=== PATIENT | female | born 1960 | race Caucasian/White ===

== ENCOUNTER → 2020-08-01 09:41 | Outpatient (BNVA) | payer BC, SELFPAY | PROVIDERS: PCP Internal Medicine; Referring Provider Internal Medicine; Visit Provider Internal Medicine | DX: Z76.89 Persons encountering health services in other specified circumstances (principal) ==

== ENCOUNTER → 2020-08-29 10:04 | Outpatient (BNVA) | payer BC, SELFPAY | PROVIDERS: PCP Internal Medicine; Referring Provider Internal Medicine; Visit Provider Internal Medicine | DX: Z76.89 Persons encountering health services in other specified circumstances (principal) ==

== ENCOUNTER → 2021-01-07 14:58 | Outpatient (BNVA) | payer BC, SELFPAY | PROVIDERS: PCP Internal Medicine; Visit Provider Internal Medicine ==

== ENCOUNTER → 2021-06-30 09:16 | Outpatient (BNVA) | payer BC, SELFPAY | PROVIDERS: PCP Internal Medicine; Referring Provider Internal Medicine; Visit Provider Internal Medicine | DX: I10 Essential (primary) hypertension (principal); G47.33 Obstructive sleep apnea (adult) (pediatric); E11.9 Type 2 diabetes mellitus without complications | CPT/HCPCS: 93005 ==

== ENCOUNTER → 2022-07-02 09:51 | Outpatient (BNVA) | payer BC, SELFPAY | PROVIDERS: PCP Internal Medicine; Referring Provider Internal Medicine; Visit Provider Internal Medicine | DX: I10 Essential (primary) hypertension (principal); E11.9 Type 2 diabetes mellitus without complications; G47.33 Obstructive sleep apnea (adult) (pediatric); E66.01 Morbid (severe) obesity due to excess calories; Z68.35 Body mass index [BMI] 35.0-35.9, adult | CPT/HCPCS: 93005 ==

== ENCOUNTER 2023-07-05 10:07 | Outpatient (REF) | payer BC, SELFPAY ==
[2023-07-05 11:51] LABS: Anion Gap 11 (12-20); Blood Urea Nitrogen 20 mg/dL (9-16); Carbon Dioxide 23 mmol/L (22-29); Chloride 109 mmol/L (96-108); Estimated Glomerular Filt Rate 57; Glucose Random 123 mg/dL (60-115); Potassium 4.5 mmol/L (3.3-5.1); Sodium 138 mmol/L (135-145)
== END 2023-07-05 10:08 | disposition home or self-care (01) ==
LOC: HO.LAB 10:07
PROVIDERS: PCP Internal Medicine; Visit Provider Internal Medicine
DX: I10 Essential (primary) hypertension (principal); E11.9 Type 2 diabetes mellitus without complications; G47.33 Obstructive sleep apnea (adult) (pediatric); E66.01 Morbid (severe) obesity due to excess calories; Z79.899 Other long term (current) drug therapy
CPT/HCPCS: 36415; 80048; 93005

== ENCOUNTER 2023-07-05 10:07 | Outpatient (AMB) | payer BC, SELFPAY ==
--- NOTE | 2023-07-05 10:18 | A.OFFVIS_ITS ---
Intake Vital Signs 07/05/23 10:19 Height 5 ft 5 in Weight 210 lb 5.136 oz BMI 35.0 BP 126/84 Blood Pressure Location Rt brachial Position Sitting Pulse 64 Intake Visit Reasons: 1 yr f/up Intake Note: 1 year follow up w/ EKG Senior Network Engineer Required: No Accompanied by: Self / Same As Patient Allergies diltiazem Allergy (Unknown, Verified 07/05/23 10:21) RASH, MYALGIAS Sulfa (Sulfonamide Antibiotics) Allergy (Unknown, Verified 07/05/23 10:21) RASH Medication List - Last Reconciled 07/05/23 by Mono Yeung MD benazepril 40 mg PO DAILY biotin 2,000 mcg PO DAILY carvedilol 12.5 mg PO BID 90 days cholecalciferol (vitamin D3) 50 mcg PO DAILY levothyroxine 125 mcg PO DAILY liothyronine 5 mcg PO QAM spironolactone 25 mg PO DAILY HPI HPI Comments History of Present Illness Details Verona returns for follow-up regarding hypertension. She has had hypertension for more than 10 years. She has had a lot of side effects with different medications. When amlodipine was tried, that gave her leg swelling and discomfort. Verapamil was also giving side effects. Then diltiazem gave some type of allergic reaction. Toprol led to fatigue. Then was taking combination of atenolol and benazepril. We added spironolactone/ HCTZ but there was an elevation of BUN and hence HCTZ part was taken off. After several changes, current regimen includes carvedilol, benazepril and spironolactone. Home diary reviewed and essentially most blood pressures are in the normal range. Otherwise, she feels good. No cardiac symptoms at all. Weight is just about the same as before. [facility] Medical History (Updated 07/02/22 @ 10:28 by Mono Yeung MD) Morbid obesity Obstructive sleep apnea Diet-controlled diabetes mellitus Essential hypertension Surgical History History of Mohs micrographic surgery for skin cancer History of cataract surgery History of cholecystectomy Family History Father No problems noted. Mother Breast CA Esophageal cancer Lung cancer Social History Patient Tobacco Use Status: Never used Tobacco Review of Systems Const Denies weakness ENT Denies dizziness Card Denies chest pain, Denies chest pain with activity, Denies syncope, Denies rapid heart rate, Denies pedal edema, Denies edema, Denies leg edema, Denies lightheadedness, Denies palpitations, Denies dyspnea, Denies dyspnea on exertion and Denies orthopnea Resp Denies cough, Denies dyspnea and Denies dyspnea on exertion GI Denies hematochezia and Denies change in stool character Reports no additional complaints and Reports as per HPI Musc Denies abnormal gait, Denies muscle weakness, Denies numbness, Denies radiating pain into limb and Denies tingling Skin/Breast Reports system reviewed and no additional complaints, except as documented and Reports as per HPI Neuro Denies abnormal gait, Denies dizziness, Denies syncope, Denies numbness, Denies tingling and Denies weakness Endo Denies palpitations Physical Exam Vital Signs: Last Vital Signs Pulse 64 07/05/23 10:19 BP 126/84 07/05/23 10:19 BMI result Body Mass Index 35.0 Const General: comfortable and no acute distress Orientation/consciousness: patient oriented x3 HEENT Other: Unremarkable Head: Yes normal to inspection Neck Neck: Yes normal visual inspection Chest Chest palpation & inspection: normal inspection of the chest Resp Auscultation: clear to auscultation bilaterally Cardio Palpation: normal PMI Heart sounds: S1 normal heart sound present, S2 normal heart sound present, no gallops, no murmurs and no rubs GI Palpation (GI): Soft to palpation Back/Spine/Pelvis Other: unremarkable Skin General skin exam: no rashes or lesions noted Neuro General: patient oriented x3 Extrem General: Yes normal to inspection Psych Mental Status: mental status grossly normal Office Procedures EKG Details: EKG with sinus rhythm at 64/Min; nonspecific ST-T changes but otherwise unremarkable[place] [id number], Complete Assessment & Plan Assessment & Plan (1) Essential hypertension: Code(s): I10 - Essential (primary) hypertension Plan: Stable blood pressure on home diary. Continue current regimen. Labs were done today and potassium 4.5. BUN 20. Creatinine 0.98. (2) Diet-controlled diabetes mellitus: Code(s): E11.9 - Type 2 diabetes mellitus without complications Plan: Per patient, on diet control only. Not listed to be on medications. Random sugar is 123. (3) Obstructive sleep apnea: Code(s): G47.33 - Obstructive sleep apnea (adult) (pediatric) Plan: Not interested in CPAP. (4) Morbid obesity: Code(s): E66.01 - Morbid (severe) obesity due to excess calories Plan: Weight has been just about the same as in the past. This has been discussed several times. Plan Total time spent including review of chart, test results, counseling, documentation, coordination of care-31 minutes. Orders: Orders Basic Metabolic Panel Today I10 - Essential (primary) hypertension Coding Level of Care Code Est Pt Level 4 (64208) Diagnoses Essential hypertension I10 Diet-controlled diabetes mellitus E11.9 Obstructive sleep apnea G47.33 Morbid obesity E66.01 CPT Codes EKG - CPT: 82280-[id number], Complete ([id number])
[2023-07-05 10:19] VITALS: BP 126/84; PULSE 64; BMI 35.0
== END 2023-07-05 10:35 | disposition home or self-care (01) ==
PROVIDERS: PCP Internal Medicine; Visit Provider Internal Medicine
DX: I10 Essential (primary) hypertension (principal); E11.9 Type 2 diabetes mellitus without complications; G47.33 Obstructive sleep apnea (adult) (pediatric); E66.01 Morbid (severe) obesity due to excess calories
CPT/HCPCS: 93010; 99214

== ENCOUNTER 2024-07-04 14:43 | Outpatient (AMB) | payer OTHER, SELFPAY ==
[2024-07-04 14:47] VITALS: BP 130/78; PULSE 65; BMI 35.8
--- NOTE | 2024-07-04 14:47 | MHC.OFFVIS ---
Vital Signs 07/04/24 14:47 Height 5 ft 5 in Weight 215 lb 2.738 oz BMI 35.8 BP 130/78 Blood Pressure Location Lt brachial Position Sitting Pulse 65 Intake Visit Reasons: 1 year followup w/ekg Quarrying Specialist Required: No Accompanied by: Self / Same As Patient Allergies diltiazem Allergy (Unknown, Verified 07/05/23 10:21) RASH, MYALGIAS Sulfa (Sulfonamide Antibiotics) Allergy (Unknown, Verified 07/05/23 10:21) RASH Medication List - Last Reconciled 07/04/24 by Mono Yeung MD benazepril 40 mg PO DAILY carvedilol 12.5 mg PO BID 90 days cholecalciferol (vitamin D3) 50 mcg PO DAILY levothyroxine 125 mcg PO DAILY spironolactone 25 mg PO DAILY HPI Comments Details: Verona returns for follow-up regarding hypertension. She has had hypertension for many years. Intolerance listed numerous medications at different times. With amlodipine, she had leg swelling/discomfort. Verapamil with some other side effects. Diltiazem cause some allergies. Toprol led to fatigue. Unspecified issues with atenolol. Then tried spironolactone/hydrochlorothiazide but then there was increase in BUN and then HCTZ was stopped. At the current time, current regimen is carvedilol, benazepril, spironolactone. In fact, she has been doing well on this for a while. Blood pressures are quite well controlled. Home diary shows essentially normal blood pressures. No specific cardiac symptoms. [facility]END[facility] TO [facility] Medical History (Updated 07/02/22 @ 10:28 by Mono Yeung MD) Morbid obesity Obstructive sleep apnea Diet-controlled diabetes mellitus Essential hypertension Surgical History History of Mohs micrographic surgery for skin cancer History of cataract surgery History of cholecystectomy Family History Father No problems noted. Mother Breast CA Esophageal cancer Lung cancer Social History Alcohol intake: never Patient Tobacco Use Status: Never used Tobacco Review of Systems Const Denies chills, Denies fatigue, Denies fever(s), Denies weight gain and Denies weight loss ENT Denies dizziness Card Denies chest pain, Denies leg edema, Denies lightheadedness, Denies palpitations, Denies dyspnea on exertion, Denies orthopnea and Denies other Resp Denies cough and Denies dyspnea on exertion GI Denies hematochezia and Denies change in stool character Musc Denies abnormal gait, Denies muscle weakness, Denies numbness, Denies radiating pain into limb and Denies tingling Neuro Denies abnormal gait, Denies dizziness, Denies numbness and Denies tingling Endo Denies fatigue and Denies palpitations Physical Exam Vital Signs: Last Vital Signs Pulse 65 07/04/24 14:47 BP 130/78 07/04/24 14:47 BMI result Body Mass Index 35.8 Const General: comfortable and no acute distress Orientation/consciousness: patient oriented x3 HEENT Other: Unremarkable Head: Yes normal to inspection Neck Neck: Yes normal visual inspection Chest Chest palpation & inspection: normal inspection of the chest Resp Auscultation: clear to auscultation bilaterally Cardio Palpation: normal PMI Heart sounds: S1 normal heart sound present, S2 normal heart sound present, no gallops, no murmurs and no rubs GI Palpation (GI): Soft to palpation Back/Spine/Pelvis Other: unremarkable Skin General skin exam: no rashes or lesions noted Neuro General: patient oriented x3 Extrem General: Yes normal to inspection Psych Mental Status: mental status grossly normal Office Procedures EKG Details: EKG with underlying sinus rhythm at 65/Min; no significant ST-T changes and otherwise unremarkable. [place]. [id number], Complete Assessment & Plan Assessment & Plan (1) Essential hypertension: Code(s): I10 - Essential (primary) hypertension Category: Medical Plan: Home diary shows BP in the normal range. No changes made and she can remain on the current regimen. Last available labs from [facility], potassium 4.5. BUN 23 and creatinine is 1. (2) Obstructive sleep apnea: Code(s): G47.33 - Obstructive sleep apnea (adult) (pediatric) Category: Medical Plan: Not interested in CPAP. Suspect some of the issues related to blood pressure management is from this. (3) Morbid obesity: Code(s): E66.01 - Morbid (severe) obesity due to excess calories Category: Medical Plan: Unfortunately, has not been able to lose much weight. It has been like this for a while. She is still motivated to lose weight however. Plan Total time spent including review of data, counseling, documentation, coordination of care-31 minutes. Coding Level of Care Code Est Pt Level 4 (17449) Diagnoses Essential hypertension I10 Obstructive sleep apnea G47.33 Morbid obesity E66.01 CPT Codes EKG - CPT: 15159-[id number], Complete ([id number])
== END 2024-07-04 15:05 | disposition home or self-care (01) ==
PROVIDERS: PCP Internal Medicine; Visit Provider Internal Medicine
DX: I10 Essential (primary) hypertension (principal); G47.33 Obstructive sleep apnea (adult) (pediatric); E66.01 Morbid (severe) obesity due to excess calories
CPT/HCPCS: 93010; 99214

== ENCOUNTER → 2024-07-04 14:43 | Outpatient (BNVA) | payer BC, SELFPAY | PROVIDERS: PCP Internal Medicine; Visit Provider Internal Medicine | DX: I10 Essential (primary) hypertension (principal); G47.33 Obstructive sleep apnea (adult) (pediatric); E66.01 Morbid (severe) obesity due to excess calories; Z68.35 Body mass index [BMI] 35.0-35.9, adult | CPT/HCPCS: 93005 ==

== ENCOUNTER 2025-07-03 13:30 | Outpatient (AMB) | payer OTHER, SELFPAY ==
[2025-07-03 13:42] VITALS: BP 124/78; PULSE 69; BMI 35.2
--- NOTE | 2025-07-03 13:42 | MHC.OFFVIS ---
Vital Signs 07/03/25 13:42 Height 5 ft 5 in Weight 211 lb 10.3 oz BMI 35.2 BP 124/78 Blood Pressure Location Rt brachial Position Sitting Pulse 69 Pulse Source Monitor Intake Visit Reasons: 1 yr f/up Allergies diltiazem Allergy (Unknown, Verified 07/05/23 10:21) RASH, MYALGIAS Sulfa (Sulfonamide Antibiotics) Allergy (Unknown, Verified 07/05/23 10:21) RASH Medication List - Last Reconciled 07/03/25 by Mono Yeung MD benazepril 40 mg PO DAILY carvedilol 12.5 mg PO BID 90 days cholecalciferol (vitamin D3) 50 mcg PO DAILY levothyroxine 125 mcg PO DAILY spironolactone 25 mg PO DAILY HPI Comments Details: Verona returns for follow-up regarding hypertension. She has had hypertension for many years. Intolerance listed numerous medications at different times. With amlodipine, she had leg swelling/discomfort. Verapamil with some other side effects. Diltiazem cause some allergies. Toprol led to fatigue. Unspecified issues with atenolol. Then tried spironolactone/hydrochlorothiazide but then there was increase in BUN and then HCTZ was stopped. For the last few years, she has been quite stable on a combination of carvedilol, benazepril and spironolactone. She has had no new issues. No concerns like angina or shortness of breath or in fact any cardiac symptoms at all. [facility] Medical History (Updated 07/02/22 @ 10:28 by Mono Yeung MD) Morbid obesity Obstructive sleep apnea Diet-controlled diabetes mellitus Essential hypertension Surgical History History of Mohs micrographic surgery for skin cancer History of cataract surgery History of cholecystectomy Family History Father No problems noted. Mother Breast CA Esophageal cancer Lung cancer Social History Alcohol intake: never Patient Tobacco Use Status: Never used Tobacco Review of Systems Const Denies weakness ENT Denies dizziness Card Denies chest pain, Denies chest pain with activity, Denies syncope, Denies rapid heart rate, Denies pedal edema, Denies edema, Denies leg edema, Denies lightheadedness, Denies palpitations, Denies dyspnea, Denies dyspnea on exertion and Denies orthopnea Resp Denies cough, Denies dyspnea and Denies dyspnea on exertion GI Denies hematochezia and Denies change in stool character Musc Denies abnormal gait, Denies muscle cramps, Denies muscle weakness, Denies numbness, Denies radiating pain into limb and Denies tingling Neuro Denies abnormal gait, Denies dizziness, Denies syncope, Denies numbness, Denies tingling and Denies weakness Endo Denies palpitations Physical Exam Vital Signs: Last Vital Signs Pulse 69 07/03/25 13:42 BP 124/78 07/03/25 13:42 BMI result Body Mass Index 35.2 Const General: comfortable and no acute distress Orientation/consciousness: patient oriented x3 HEENT Other: Unremarkable Head: Yes normal to inspection Neck Neck: Yes normal visual inspection Chest Chest palpation & inspection: normal inspection of the chest Resp Auscultation: clear to auscultation bilaterally Cardio Palpation: normal PMI Heart sounds: S1 normal heart sound present, S2 normal heart sound present, no gallops, no murmurs and no rubs GI Palpation (GI): Soft to palpation Back/Spine/Pelvis Other: unremarkable Skin General skin exam: no rashes or lesions noted Neuro General: patient oriented x3 Extrem General: Yes normal to inspection Psych Mental Status: mental status grossly normal Office Procedures EKG Details: EKG with underlying sinus rhythm at 69/Min; nonspecific ST-T changes; [place]. [id number], Complete Assessment & Plan Assessment & Plan (1) Essential hypertension: Code(s): I10 - Essential (primary) hypertension Category: Medical Plan: Currently on Coreg, benazepril, spironolactone. Last labs-Creatinine 0.96. Potassium 4.9 (2) Obstructive sleep apnea: Code(s): G47.33 - Obstructive sleep apnea (adult) (pediatric) Category: Medical Plan: We have discussed CPAP several times but not pursued. (3) Morbid obesity: Code(s): E66.01 - Morbid (severe) obesity due to excess calories Category: Medical Plan: Compared to the last weight, has lost about 4 lb or so. Overall, she has been in the 210-15 lb sewn for quite some time. She is very well aware of the fact that she needs to lose weight. Plan Total time spent including review of data, counseling, documentation, coordination of care-32 minutes. Coding Level of Care Code Est Pt Level 4 (59740) Complex EM visit Add On G2211 Diagnoses Essential hypertension I10 Obstructive sleep apnea G47.33 Morbid obesity E66.01 CPT Codes EKG - CPT: 03937-[id number], Complete ([id number])
--- OUTSIDE RECORDS SUMMARY | 2025-07-03 17:26 | XMS_ITS | Clinical Summary ---
Author Organization [facility] Address [address] [place] [phone] Phone Care Team Providers Care Manager Secondary Name Role Phone Millie Aguilar MD Primary Care Provider [phone] Allergies Active Allergy Reactions Criticality Noted Date Comments Diltiazem Hcl Rash Low 08/09/2018 Sulfa (Sulfonamide Antibiotics) Itching,Rash Low Medications benazepril (LOTENSIN) 40 MG tablet Take 40 mg by mouth daily. Active verapamil (CALAN-SR) 180 MG CR tablet Take 180 mg by mouth nightly. Active biotin 1,000 mcg ChewIndications: 2 tabs a day Take by mouth. Active cholecalciferol (VITAMIN D3) 2,000 unit capsule Take by mouth daily. Active docusate sodium (COLACE) 50 MG capsule Take by mouth 2 (two) times a day. Active ibuprofen (ADVIL,MOTRIN) 200 MG tabletIndication s:as needed Take 200 mg by mouth every 6 (six) hours as needed for pain (specific location in comments). Active sennosides (SENOKOT ORAL)Indications :a00mg ocasionally Take by mouth. Active tobramycin (TOBREX) 0.3 % ophthalmic solution Place 1 drop into each eye every 4 (four) hours. Active levothyroxine (SYNTHROID, LEVOTHROID) 100 MCG tablet Take 100 mcg by mouth every morning. 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 Not on elisa e 02/12/2023 Are you concerned about learning? Not on file 02/12/2023 No 02/12/2023 No 02/12/2023 Digital Access Answer Date Recorded No 03/13/2023 No 03/13/2023 No 03/13/2023 Reliable internet access at home? Not on file 03/13/2023 Device with a working camera? Not on file Comments Unknown Sex and Gender Information Value Date Recorded Sex Assigned at Not on file Legal Sex Female 9:51 AM EDT Gender Identity Not on file Sexual Orientation Not on file Last Filed Vital Signs Vital Sign Reading Time Taken Comments Blood Pressure 181/92 08/09/2018 8:24 AM EDT Pulse 79 08/09/2018 8:24 AM EDT Temperature - - Respiratory Rate - - Oxygen Saturation 97% 08/09/2018 8:24 AM EDT Inhaled Oxygen Concentration - - Weight 94.7 kg (208 lb 11.2 oz) 08/09/2018 8:24 AM EDT Height 165.1 cm (5' 5 ) 08/09/2018 8:24 AM EDT Body Mass Index 34.73 08/09/2018 8:24 AM EDT Plan of Treatment Health Maintenance Due Date Last Done Comments Adult Td,Tdap Booster 1959 BLOOD PRESSURE 1959 CREATININE LEVEL 1959 LIPID PANEL 1959 POTASSIUM LEVEL 1959 TSH LEVEL 1959 DEPRESSION SCREENING 1971 MAMMOGRAM 1999 COLOGUARD 2004 COLONOSCOPY 2004 COLORECTAL CANCER SCREENING 2004 FIT TEST 2004 FOBT 2004 SIGMOIDOSCOPY 2004 VIRTUAL COLONOSCOPY 2004 PNEUMOCOCCAL VACCINES (50+ years) (1 of 1 - PCV) 2009 ZOSTER VACCINES (1 of 2) 2009 OSTEOPOROSIS SCREENING INITI AL (ONE-TIME) 2024 INFLUENZA VACCINE (#1) 2025 COVID-19 VACCINE (3 - 2024-2 6 season) 2025 12/06/2020, 11/15/2020 RSV VACCINE (1 - 1-dose 75+ series) 2034 HEPATITIS C SCREENING Completed 08/09/2018 SMOKING STATUS SCREENING (On ce After 26 Yrs) Completed 08/09/2018 HEPATITIS A VACCINES Aged Out No long er eligible based on patient's age to complete this topic HIB VACCINES Aged Out No longer eligi ble based on patient's age to complete this topic MENINGOCOCCAL VACCINES (ACWY) Aged Out No longer eligible based on patient's age to complete this topic MENINGOCOCCAL VACCINES (B) Aged Out N o longer eligible based on patient's age to complete this topic Medical Devices Not on file Procedures Procedure Name Priority Date/Time Associated Diagnosis Comments HEPATITIS C ANTIBODY, QUALITATIVE Routine 08/09/2018 9:10 AM EDT Carrier of qajvs-7-upmsbersbrh deficiency from Last 3 Months or Most Recently Relevant to Health Maintenance Results * Hepatitis C antibody, qualitative (08/09/2018 9:10 AM EDT) HCV Nonreactive Nonreactive [facility] 08/09/2018 9:10 AM EDT 08/09/2018 9:28 AM EDT us Javier Polanco MD, MPH LAB BLOOD ORDERABLES Final Result Performing Organization Address City/State/[facility] Co de Phone Number [facility] [address] [place] [address] from Last 3 Months or Most Recently Relevant to Health Maintenance [facility] POS O POS HMO POS Member Subscriber Plan / Payer (Ef fective 2016-Present) Name:Verona Guevara Relation to Subscriber:Self Name:CornelioelizVerona Payer ID:[id number] (NAIC) Type:HMO Address: [address] HMO POS HMO POS HMO [place] [address] HMO POS [facility] HMO POS Care Teams Manager Secondary Relationship Specialty [place] [address] [place] [id number] PCP - General Internal Medicine 05/24/18 Additional Source Comments The information contained in this document represents components of the legal health record. It is not the complete legal health record.[facility]
--- OUTSIDE RECORDS SUMMARY | 2025-07-03 17:26 | XMS_ITS | Clinical Summary ---
Author Organization [facility] it Address [address] [place] [address] Care Team Providers Care International Representative Name Role Phone Millie Aguilar MD Primary Care Provider Social History Tobacco Use Types Packs/Day Years Used Date Smoking Tobacco: Never Assessed Comments Unknown Sex and Gender Information Value Date Recorded Sex Assigned at Not on file Legal Sex Female 4:07 AM EST Gender Identity Not on file Sexual Orientation Not on file Plan of Treatment Health Maintenance Due Date Last Done Comments Breast Cancer Screening 1959 DTaP,Tdap,and Td Vaccines (1 - Tdap) 1978 Pneumococcal Vaccine: 50+ Ye ars (1 of 1 - PCV) 2009 Zoster Vaccines (1 of 2) 2009 Colorectal Cancer Screening: Colonoscopy 09/20/2022 Hepatitis C Screening 09/20/2022 Osteoporosis Screening (Bone Density Screening) 09/20/2022 Social Influencers of Health Screening 09/20/2022 Falls Risk Assessment 2024 Depression Screening 10/18/2024 COVID-19 Vaccine (1 - 2023-2 5 season) 2025 Influenza Vaccine (#1) 2025 RSV Immunization Adult Patie nts (1 - 1-dose 75+ series) 2034 HIB Vaccines Aged Out No longer eligi ble based on patient's age to complete this topic HPV Vaccines Aged Out No longer eligi ble based on patient's age to complete this topic Hepatitis A Vaccines Aged Out No long er eligible based on patient's age to complete this topic Hepatitis B Vaccines Aged Out No long er eligible based on patient's age to complete this topic IPV Vaccines Aged Out No longer eligi ble based on patient's age to complete this topic MMR Vaccines Aged Out No longer eligi ble based on patient's age to complete this topic Meningococcal ACWY Vaccine Aged Out N o longer eligible based on patient's age to complete this topic Meningococcal B Vaccine Aged Out No l onger eligible based on patient's age to complete this topic RSV Immunization Patients Un haja 20 months Aged Out No longer eligible b ased on patient's age to complete this topic Varicella Vaccines Aged Out No longer eligible based on patient's age to complete this topic Care Teams International Representative Relationship Specialty Start Date End Date Millie Aguilar MD [address] [place] [address] PCP - General 03/15/09
--- OUTSIDE RECORDS SUMMARY | 2025-07-03 17:26 | XMS_ITS ---
Author Name [facility] Organization Unknown History of Medication Use Medication Directions Dispensed Refills Start Date End Date Stat us albuterol sulfate HFA 90 mcg/actuation aerosol inhaler INHALE 1 PUFF BY MOUTH 4 TIMES A DAY NEEDED FOR WHEEZE active amoxicillin 875 mg-potassium clavulanate 125 mg tablet TAKE 1 TABLET BY MOUTH EVERY 12 HOURS FOR 7 DAYS active azithromycin 250 mg tablet 1 TABLET BY MOUTH DAILY,X4 DAYS active benazepril 40 mg tablet TAKE 1 TABLET BY MOUTH EVERY DAY active benzonatate 200 mg capsule TAKE 1 CAPSULE BY MOUTH 3 TIMES A DAY FOR 7 DAYS active carvedilol 12.5 mg tablet TAKE 1 TABLET BY MOUTH TWICE A DAY FOR 90 DAYS active erythromycin 5 mg/gram (0.5 %) eye ointment APPLY A SMALL AMOUNT INTO BOTH EYES TWICE A DAY active levothyroxine 100 mcg tablet TAKE 1 TABLET BY MOUTH EVERY DAY active levothyroxine 125 mcg tablet PLEASE SEE ATTACHED FOR DETAILED DIRECTIONS active spironolactone 25 mg tablet TAKE 1 TABLET BY MOUTH EVERY DAY active Allergies Allergen Reaction Severity Comment Documented Date Source Statu s DILTIAZEM E[facility]ONECT SULFA (SULFONAMIDE ANTIBIOTICS) [facility] Problems Problem Status Onset Date Problem Type Date of Resoluti on Source Osteoarthritis of right knee joint active 2025-03-22 ProblemAct [facility] Encounters Encounter Type Encounter Reason Primary Diagnosis Location Date Ambulatory [facility] 05/25/2025 Ambulatory [facility] 05/24/2025 Ambulatory [facility] 04/10/2025 Ambulatory [facility] 03/23/2025 Ambulatory [facility] 03/22/2025 Ambulatory [facility] 03[facility]22/2025 Ambulatory [facility] 03/22/2025 Ambulatory [facility] 03/20/2025 Ambulatory [facility] 03/09/2025 Ambulatory [facility] 03/01/2025 Ambulatory [facility] 03/01/2025 Ambulatory [facility] 03/01/2025 Ambulatory [facility] 03/01/2025
== END 2025-07-03 14:10 | disposition home or self-care (01) ==
LOC: HO.HCS 13:30
PROVIDERS: PCP Internal Medicine; Visit Provider Internal Medicine
DX: I10 Essential (primary) hypertension (principal); G47.33 Obstructive sleep apnea (adult) (pediatric); E66.01 Morbid (severe) obesity due to excess calories
CPT/HCPCS: 93010; 99214

== ENCOUNTER → 2025-07-03 13:30 | Outpatient (BNVA) | payer OTHER, SELFPAY | PROVIDERS: PCP Internal Medicine; Visit Provider Internal Medicine | DX: I10 Essential (primary) hypertension (principal) | CPT/HCPCS: 93005 ==